=== PATIENT | male | born 1945 | race Caucasian/White ===

== ENCOUNTER 2025-05-03 13:30 | Outpatient (AMB) | payer MEDICARE, SELFPAY ==
--- NOTE | 2025-05-03 13:34 | A.OFFVIS_ITS ---
Intake Visit Reasons: 6 Months / MCI Allergies Penicillins Allergy (Unknown, Verified 05/03/25 13:38) Unknown Medication List - Last Reconciled 05/03/25 by Shara Roque CNP amiodarone 200 mg PO BID amitriptyline 75 mg PO BEDTIME carvedilol 3.125 mg PO BID donepezil 10 mg PO DAILY empagliflozin (Jardiance) 10 mg PO DAILY ferrous sulfate (FeroSul) 325 mg PO BID lansoprazole 30 mg PO DAILY losartan 25 mg PO DAILY torsemide 80 mg PO BID warfarin 5 - 7.5 mg PO DAILY HPI Comments Details: He was doing okay. Memory may be a bit worse. He was forgetful at times. He had water with him and he said he would forget it if he put it down. He had to write appointments down. He was driving locally without issue, but would forget where he parked sometimes. He had [facility]NA once a week that helped manage his medications. He started home PT recently. He fell a few weeks ago when trying to [place] to his car in the rain, did not hit his head. He was walking with cane or walker. Sleep was okay with amitriptyline. Mood was okay. He was walking with cane. He has been living with a friend since his passed in 07/2023. He has one son who lives in [place] that he saw about once a week. He noticed memory problems beginning around 2019. He was forgetting things and needed reminders. He had 3 cardioversions done for atrial fibrillation but continues to be back in afib. He got pacemaker/defibrillator in summer 2024. No history of head trauma. No history of stroke. No history of sleep apnea. No family history of dementia. [facility] Medical History (Updated 05/03/25 @ 13:48 by Shara Roque CNP) Presence of combination internal cardiac defibrillator (ICD) and pacemaker Atrial fibrillation Hypertension MCI (mild cognitive impairment) Review of Systems Const Denies chills, Denies daytime sleepiness, Denies difficulty sleeping, Denies fatigue, Denies fever(s), Denies frequent falls, Denies headache(s), Denies increased appetite, Denies poor appetite, Denies snoring, Denies weakness, Denies weight gain and Denies weight loss Eyes Denies loss of vision ENT Denies vertigo, Denies dizziness, Denies headache(s) and Denies neck pain Card Denies chest pain at rest, Denies chest pain with activity, Denies syncope, Denies leg edema, Denies palpitations, Denies dyspnea and Denies dyspnea on exertion Resp Denies cough, Denies dyspnea, Denies dyspnea on exertion and Denies snoring GI Denies abdominal pain, Denies constipation, Denies heartburn, Denies diarrhea and Denies nausea Denies urinary frequency, Denies urinary incontinence and Denies urinary urgency Musc Denies abnormal gait, Denies back pain, Denies myalgias, Denies arthralgias, Denies neck pain, Denies numbness and Denies tingling Neuro Denies abnormal gait, Denies vertigo, Denies dizziness, Denies syncope, Denies frequent falls, Denies headache(s), Denies lack of coordination, Denies loss of vision, Reports memory loss, Denies numbness, Denies Other visual disturbances, Denies restless legs, Denies seizure-like activity, Denies tingling, Denies paresthesias, Denies tremor(s) and Denies weakness Psych Denies anxiety, Denies depression, Denies auditory hallucinations, Reports memory loss and Denies visual hallucinations Endo Denies fatigue and Denies palpitations Physical Exam Const Other: General Appearance:? normal, in no acute distress. Heart:? S1, S2 normal, no murmurs. Lungs:? clear anteriorly and posteriorly. Musculoskeletal:? normal. Extremities:? no edema. Psych:? alert, as below. Neuro Other: Abnormal Neurological Findings:?MMSE 27/30.?Walking with cane. Mental Status: alert, as below. Cranial Nerves: Pupils are equal, round, and reactive to light. External ocular muscles are intact. Visual tanner are full, no ptosis. Face is symmetrical, no facial weakness or droop. Facial sensations are normal. Tongue protrudes in mi dline. Palate elevates symmetrically. Shoulder shrugging is normal Motor Examination: Normal muscle tone, bulk and strength. No atrophy or fasciculations. No drift of the extended upper extremities. DTR 2+. Plantars are flexor. Sensory Exam: Normal light touch, temperature, pinprick, vibration, and joint- position sensations. Rhomberg sign is absent. Coordination: No ataxia. No titubation. Gait Exam: With cane. Cerebellar Signs: [id number] and [id number] is normal. No dysdiadochokinesia. Extrapyramidal System: No tremor, rigidity with normal facial expressions. No bradykinesia. No bradyphrenia. Normal arm swing and posture. No propulsion or retropulsion. Speech: Normal. No dysphasia or dysarthria. MMSE Level of Consciousness: Alert. Orientation: Knows correct month, day, and season. Does not know year or date. Knows correct city, county and state. Knows correct location and floor. Registration: Able to register 3 objects. Attention: Serial 7's performed accurately to 65 Recall: Able to recall 2 out of 3 objects. Language: Normal spontaneous speech, fluency, repetition, naming, comprehension, reading, and writing. Total Score: 27/30. 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 There is diffuse volume loss. 02/05/23 EEG- Mild slowing diffusely 7 Hz Assessment & Plan Assessment & Plan (1) MCI (mild cognitive impairment): Code(s): G31.84 - Mild cognitive impairment of uncertain or unknown etiology Category: Medical Plan: Continue donepezil 10mg 1 tablet at bedtime. Start memantine 5mg 1 tablet twice a day, use/side effects reviewed. Stay physically and socially active, continue to work with PT. Medications: New memantine (Namenda) 5 mg PO BID 60 tabs 3RF 30 days Coding Level of Care Code Est Pt Level 4 (82307) Diagnoses MCI (mild cognitive impairment) G31.84
--- OUTSIDE RECORDS SUMMARY | 2025-05-03 13:57 | XMS_ITS ---
Author Name [facility] Organization Unknown Care Team Organization Name Specialty Phone Email Start Date End Da te [facility] Riri Robertson Primary Care 05/28/2023 05/09/2024 [facility] Aris Cummings Primary Care 02/27/2023 [facility] DELMY Ji Primary Care 11/26/202204/21 [facility] Lilli Bustos Primary Care 07/29/2022
--- OUTSIDE RECORDS SUMMARY | 2025-05-03 13:57 | XMS_ITS | Encounter Summary ---
Author Organization [facility] Address [address] [place] [address] Care Team Providers Care Orchardist Name Role Phone Aris Cummings Primary Care Provider [phone] Reason for Visit * Reason Onset Date Comments home health cert 05/01/2025 04/14/25-06/12/25 Encounter Details Date Type Department Care Team (Late st Contact Info) Description 05/01/2025 Telephone Adult Medicine [facility] [address] [place] [phone] Aris Cummings PA [address] [place] [address] home health cert ( 04/14/25-06/12/25) Social History Tobacco Use Types Packs/Day Years Used Date Smoking Tobacco: Never Smokeless Tobacco: Never Alcohol Use Standard Drinks/Week Comments Not Currently 0 (1 standard drink = 0.6 oz pur e alcohol) Housing Instability Answer Date Recorde d Are you worried that in the next 2 months you may not have stable housing? No 12/21/2024 Food Access & Nutrition Answer Date Rec orded Do you have access to a vari ety of food including fruits and vegetables? No 12/21/2024 Access to Healthcare Answer Date Record ed Within the last 3 months, zain vera many times did you visit the emergency department for your medical care? 3 12/21/2024 Health Literacy Answer Date Recorded How often do you need to hav e someone help you when you read instructions, pamphlets, or other written material from your doctor or pharmacy? Never 12/21/2024 Caregiver: How often do you need to have someone help you when you read instructions, pamphlets, or other written material from your doctor or pharmacy? Not on file 12/21/2024 Financial Risk Answer Date Recorded How hard is it for you to pa y for the very basics like food, housing, medical care, and air conditioning / heating? Not very hard 12/21/2024 Transportation Answer Date Recorded Has the lack of transportati on kept you from meetings, work, or from getting things needed for daily living? No Has the lack of transportati on kept you from medical appointments or from getting medications? No 12/21/2024 Social Isolation Answer Date Recorded How often do you feel lonely or isolated from th ose around you? Rarely 12/21/2024 Food Risk Answer Date Recorded Within the past 12 months we worried whether our food would run out before we got money to buy more. Never true 12/21/2024 Within the past 12 months th e food we bought just didn't last and we didn't have money to get more. Never true 12/21/2024 Dependent Care Answer Date Recorded Do you need help finding or paying for care for your loved ones. For example, attendant children's institution or elderly care for an older adult? No 12/21/2024 Education Answer Date Recorded Do you think completing more education or training, like finishing a GED, going to college, or learning a trade, would be helpful for you? No 12/21/2024 Employment and Income Answer Date Recor ded During the last four weeks, have you been actively looking for work? No 12/21/2024 Living Situation Answer Date Recorded What is your living situation? 0 12/21/2024 Interpersonal Safety Answer Date Record ed Physical Abuse 03/24/2025 Verbal Abuse 03/24/2025 Sex and Gender Information Value Date Recorded Sex Assigned at Male 11/20/2024 6:24 PM EST Legal Sex Male 10:30 AM EST Gender Identity Male 11/20/2024 6:24 PM EST Sexual Orientation Straight 12/19/2024 10 :11 AM EDT documented as of this encounter Functional Status * Are you deaf or do you have serious difficulty hearing? Answer Date of Assessment Author No 12/11/2024 4:23 PM EDT Lupis Caballero RN * Are you blind or do you have serious difficulty seeing, even when wearing glasses? Answer Date of Assessment Author No 12/11/2024 4:23 PM EDT Lupis Caballero RN * Do you have serious difficulty walking or climbing stairs? Answer Date of Assessment Author No 12/11/2024 4:23 PM EDT Lupis Caballero RN * Do you have serious difficulty dressing or bathing? Answer Date of Assessment Author No 12/11/2024 4:23 PM EDT Lupis Caballero RN * Because of a physical, mental, or emotional condition, do you have serious difficulty doing errandsalone such as visiting the doctor? Answer Date of Assessment Author No 12/11/2024 4:23 PM EDT Lupis Caballero RN documented as of this encounter Mental Status * Because of a physical, mental, or emotional condition, do you have serious difficulty concentrating, remembering, or making decisions? (5 years old or older) Answer Entry Date Author No 12/11/2024 4:23 PM EDT Lupis Caballero RN documented in this encounter Progress Notes * Kayla Rosa MA - 05/01/2025 3:27 PM EDT [facility] 04/14/25-06/12/25 Orders on mikes desk for signature documented in this encounter Plan of Treatment Upcoming Encounters Date Type Department Care Team (Late st Contact Info) Description 05/24/2025 10:50 AM EDT Office Visit [facility] [address] [address] Cisco Lynch MD [address] [address] 08/16/2025 11:00 AM EST Office Visit Adult Medicine [id number] [place] [address] Aris Cummings, PA [address] [place] [address] 02/01/2026 11:00 AM EDT Ancillary Procedure [facility] [address] [facility] [address] [place] [address] documented as of this encounter Goals Goal Patient Goal Type Associated Problems Recent Progress Patient-Stated? Author STG's 6 visits General Yes Mark Escamilla, PT Note: Pt will report walking up to 7 mins, 2 or more days per week for exercise for general health. Pt is Independent and compliant with initial HEP. Pt will demonstrate sit to stand transfers w/ min A of UE's or less. Pt will demonstrate 9 reps or more for 30 SCS Test. LTG's 12 visits General Yes Mark Escamilla, PT Note: Pt will report walking up to 15 mins, 3 or more days per week for exercise for general health. Pt is Independent and compliant with final HEP. Pt will demonstrate sit to stand transfers w/ A of UE's for safety only. Pt will [id number] reps or more for 30 SCS Test. documented as of this encounter Visit Diagnoses Not on filedocumented in this encounter Additional Health Concerns Assessment Noted Time PHQ-9 Depression Total Score: 0 04/21/20 25 9:57 AM EDT A fall risk assessment has been complete d for the patient 09/01/2024 2:30 PM EST documented as of this encounter Care Teams Or[facility]ist Relationship Specialty Start Date End Date Aris Cummings PA [address] [place] [id number] PCP - General Internal Medicine 12/26/20 documented as of this encounter
--- OUTSIDE RECORDS SUMMARY | 2025-05-03 13:57 | XMS_ITS | Clinical Summary ---
Author Organization [facility] Address [address] [address] Phone Care Team Providers Care Underwriting Specialist Name Role Phone Mainor Zhao Sallyelan Primary Care Provider [phone] Allergies Active Allergy Reactions Criticality Noted Date Comments Iodinated Contrast Media 11/20/2023 Penicillins 11/20/2023 Medications dilTIAZem CD (CARDIZEM CD) 180 MG 24 hr capsule Take 180 mg by mouth 1 (one) time each day Active simvastatin (ZOCOR) 20 MG tablet Take 20 mg by mouth every night Active amitriptyline (ELAVIL) 50 MG tablet Take 50 mg by mouth every night Active allopurinol (ZYLOPRIM) 100 MG tablet Take 100 mg by mouth 1 (one) time each day Active warfarin (COUMADIN) 5 MG tablet Take as directed per After Visit Summary. Active potassium chloride (MICRO-K) 10 MEQ CR capsule Take 20 mEq by mouth in the morning and 20 mEq in the evening. Do not crush or chew.. Active omeprazole OTC (PriLOSEC OTC) 20 MG EC tablet Take 20 mg by mouth 1 (one) time each day Do not crush, chew, or split. Active memantine (NAMENDA) 5 MG tablet Take 5 mg by mouth 1 (one) time each day Active torsemide (DEMADEX) 20 MG tablet Take FORTY mg in the morning and TWENTY mg in the evening Active amiodarone (PACERONE) 100 MG tablet Take 100 mg by mouth 1 (one) time each day Active lisinopril 10 MG tablet Take 1 tablet (10 mg total) by mouth 1 (one) time each day 30 tablet 11 11/20/2023 Active Active Problems Problem Noted Date Diagnosed Date Stage 3b chronic kidney disease 05/27/2024 Type 2 diabetes mellitus 11/20/2023 Anticoagulant therapy 11/20/2023 Benign essential hypertension 11/20/2023 Congestive heart failure 11/20/2023 Overview (11/20/2023): with diastolic dysfunction Gout 11/20/2023 Hyperlipidemia 11/20/2023 Hyperthyroidism 11/20/2023 Impaired fasting glucose 11/20/2023 Peripheral edema 11/20/2023 Immunizations Immunization Administration Dates Next Due H1N1 Inj Preservative Free 10/12/2009 Influenza Split High Dose Pr eservative Free IM 07/14/2023,06/28/2022,07/25/2021,06/29,07/18/2019,05/30/2018,06/07/2017 ,06/28/2016,06/04/2015 Moderna SARS-COV-2 08/27/2021,,11/16/2020,11/06,10/16/2020,10/06/2020 Pfizer SARS-COV-2 07/14/2023 Pneumococcal Conjugate 13-Valent 10/03/2015 Pneumococcal Polysaccharide 11/07/2016, 0 Tdap 08/02/2008 Family History Medical History Relation Comments Down syndrome Brother Heart disease Brother Coronary artery disease Mother Relation Status Comments Brother Father Mother Social History Tobacco Use Types Packs/Day Years Used Date Smoking Tobacco: Never Sex and Gender Information Value Date Recorded Sex Assigned at Not on file Legal Sex Male 9:48 AM EDT Gender Identity Not on file Sexual Orientation Not on file Plan of Treatment Health Maintenance Due Date Last Done Comments Diabetes: Hemoglobin A1C 02/20/2025 09/29/2023 Diabetes: Ophthalmology Exam 02/20/2025 06/13/2013, 06/01/2006 Diabetes: Pedal Pulse Checked 02/20/2025 Diabetes: Sensory Foot Exam 02/20/2025 Diabetes: Visual Foot Exam 02/20/2025 Influenza Vaccine (#1) 2025 3, 06/28/2022, 07/25/2021, Additional history exists Pneumococcal Vaccine: 50+ Years Completed 11/07/2016, 10/03/2015, 07/17/2010 Hepatitis B Vaccine Aged Out No longe r eligible based on patient's age to complete this topic Insurance Medicare [facility] Medicare [facility] Care Teams Underwriting Specialist Relationship Specialty Start Date End Date Mainor Zhao PCP - General 10/20/23
== END 2025-05-03 13:54 | disposition home or self-care (01) ==
LOC: HO.HSM 13:32
PROVIDERS: PCP Physician Assistant Medical; Referring Provider Physician Assistant Medical; Visit Provider Registered Nurse
DX: G31.84 Mild cognitive impairment of uncertain or unknown etiology (principal)
CPT/HCPCS: 99214

== ENCOUNTER → 2025-05-03 13:30 | Outpatient (BNVA) | payer MEDICARE, SELFPAY | PROVIDERS: PCP Physician Assistant Medical; Referring Provider Physician Assistant Medical; Visit Provider Registered Nurse | DX: G31.84 Mild cognitive impairment of uncertain or unknown etiology (principal) | CPT/HCPCS: 99212 ==

== ENCOUNTER → 2025-07-16 15:58 | Outpatient (BNV) | payer MEDICARE, SELFPAY | PROVIDERS: Admitting Provider Surgery; Emergency Provider Emergency Medicine Emergency Medical Services; PCP Physician Assistant Medical; Visit Provider Nurse Practitioner Family | DX: K56.609 Unspecified intestinal obstruction, unspecified as to partial versus complete obstruction (principal); K40.30 Unilateral inguinal hernia, with obstruction, without gangrene, not specified as recurrent; N17.9 Acute kidney failure, unspecified | CPT/HCPCS: 99223; 99232; 99499 ==